=== PATIENT | male | born 1985 | race African-American/Black ===

== ENCOUNTER 2017-02-23 23:05 | Emergency (ER) | payer OTHER ==
[~2017-02-23] VITALS: Ht 165.1 cm; Wt 90.9 kg
[2017-02-23 23:18] VITALS: BP 132/84; PULSE 78; RESP 16; O2SAT 98
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
[2017-02-24] MEDS ORDERED: IBUP800T28 PO (00:58)
[2017-02-24] MEDS ORDERED: HYDROcodone-APAP 10-325 mg PO ONE (01:00)
[2017-02-24 01:26] VITALS: BP 127/78; PULSE 77; RESP 16; O2SAT 99
--- NOTE | 2017-02-24 08:15 | DRSVH ---
PROCEDURE: X-RAY LEFT FOOT COMPLETE, MINIMUM THREE VIEWS ([id number]) INDICATIONS: foot pain TECHNIQUE: 3 views of the foot were acquired. COMPARISON: None. FINDINGS: Bones: No fractures or dislocations. No suspicious bony lesions. Soft tissues: No tibiotalar joint effusion. Achilles tendon appears normal. IMPRESSION: No fracture. Dictated by: Maico Argueta M.D. on 02/24/2017 at 8:12 Approved by: Maico Argueta M.D. on 02/24/2017 at 8:13
== END 2017-02-24 01:27 | disposition home or self-care (01) ==
LOC: SED 23:05
DX: S99.822A Other specified injuries of left foot, initial encounter (principal); W22.8XXA Striking against or struck by other objects, initial encounter; Y93.89 Activity, other specified; Y92.410 Unspecified street and highway as the place of occurrence of the external cause; Y99.8 Other external cause status